=== PATIENT | male | born 1950 | race Caucasian/White ===

== ENCOUNTER 2016-10-05 07:42 | Day surgery (SDC) | payer MEDICARE ==
[2016-10-02 11:20] VITALS: BMI 32.3
[~2016-10-05 07:42] MED LIST: LACTATED RINGERS 1,000 ML IV SCH
[2016-10-05 08:05] VITALS: RESP 16
[2016-10-05 08:08] VITALS: TEMP 99.4
[2016-10-05] MEDS ORDERED: LIDOCAINE 1% 20 ML VIAL (10MG/ML) FOR IV START INTRADERMA ONE (08:11)
[2016-10-05] MEDS ORDERED: LIDOCAINE 1% INJ 10MG/ML (20 ML MDV) ONE (09:04)
[2016-10-05] MEDS ORDERED: PROPOFOL 10 MG/ML 20 ML VIAL IV ONE (09:04)
--- NOTE | 2016-10-05 09:12 | P.GSHP ---
History of Present Illness H&P Date: 10/05/16 Chief Complaint: Screening colonoscopy This is a 65-year-old male referred from Dr. Nini grey. Patient is today for screening colonoscopy. He denies any significant GI complaints. - Constitutional Constitutional: Reports as per HPI Past Medical History Past Medical History: Heart Failure, Hypertension, Myocardial Infarction ([place]) Additional Past Medical History / Comment(s): hx of gout, mi x2 Last Myocardial Infarction Date:: 2009 History of Any Multi-Drug Resistant Organisms: None Reported Past Surgical History: Appendectomy, Ear Surgery, Heart Catheterization With Stent, Joint Replacement Additional Past Surgical History / Comment(s): rt ear drum sx, arcenio hip replacements, stent x1 Past Anesthesia/Blood Transfusion Reactions: Postoperative Nausea & Vomiting ( PONV) Date of Last Stent Placement:: 1996 Smoking Status: Former smoker - Past Family History Mother Family Medical History: No Reported History Additional Family Medical History / Comment(s): of TB when pt was 2yrs old Medications and Allergies Home Medications Medication Instructions Recorded Confirmed Type Allopurinol [Zyloprim] 300 mg PO DAILY 10/02/16 10/05/16 History Aspirin [Children's Aspirin] 81 mg PO DAILY 10/02/16 10/05/16 History Enalapril [Vasotec] 5 mg PO BID 10/02/16 10/05/16 History Furosemide [Lasix] 20 mg PO QAM 10/02/16 10/05/16 History Ibuprofen [Motrin] 800 mg PO Q6H PRN 10/02/16 10/05/16 History Metoprolol Tartrate 25 mg PO BID 10/02/16 10/05/16 History PARoxetine [Paxil] 20 mg PO DAILY 10/02/16 10/05/16 History Allergies Allergy/AdvReac Type Severity Reaction Status Date / Time morphine Allergy Rash/Hives Verified 10/05/16 08:09 Surgical - Exam Vital Signs Resp 16 10/05/16 07:49 - General well developed, well nourished, no distress - Eyes PERRL - ENT normal pinna - Neck no masses - Respiratory normal expansion - Cardiovascular Rhythm: regular - Abdomen Abdomen: soft, non tender Assessment and Plan Plan: We'll perform screening colonoscopy.
--- NOTE | 2016-10-05 09:33 | P.OP ---
Date of Procedure: 10/05/16 Preoperative Diagnosis: Screening colonoscopy Postoperative Diagnosis: Diverticulosis Procedure(s) Performed: Colonoscopy Implants: Anesthesia: MAC Surgeon: Rodriguez Wilson Pathology: none sent Condition: stable Disposition: PACU Indications for Procedure: Operative Findings: Description of Procedure: The patient's placed on the endoscopy table in the lateral position. He received IV sedation. Digital rectal exam was performed which revealed no abnormalities. The flexible colonoscope was then placed patient anus passed throughout the entire colon. The ileocecal valve was visualized. The cecum, ascending, transverse colon appeared normal. In the descending and sigmoid colon is mild diverticular changes. There is no evidence of diverticulitis. The scope was then brought back the rectum and this appeared normal. Scope was withdrawn for patient.
[2016-10-05 09:53] VITALS: BP 141/82; PULSE 67
== END 2016-10-05 10:41 | disposition home or self-care (01) ==
LOC: ORWHC2ENDO 07:42
PROVIDERS: ATTEND Surgery
DX: Z12.11 Encounter for screening for malignant neoplasm of colon (principal); K57.30 Diverticulosis of large intestine without perforation or abscess without bleeding; K21.9 Gastro-esophageal reflux disease without esophagitis; I25.10 Atherosclerotic heart disease of native coronary artery without angina pectoris; I11.0 Hypertensive heart disease with heart failure; I50.9 Heart failure, unspecified; Z87.891 Personal history of nicotine dependence; I25.2 Old myocardial infarction; M10.9 Gout, unspecified; F41.9 Anxiety disorder, unspecified; F32.9 Major depressive disorder, single episode, unspecified; Z79.82 Long term (current) use of aspirin; Z79.899 Other long term (current) drug therapy; Z88.5 Allergy status to narcotic agent
CPT/HCPCS: J2001; J2704; G0121; 45378

== ENCOUNTER → 2018-07-08 | Day surgery (SDC) | payer MEDICARE ==
[2018-07-07 09:45] VITALS: BMI 35.2
[~2018-07-08] MED LIST changes: +LIDOCAINE 1% 20 ML VIAL (10MG/ML) FOR IV START INTRADERMA ONE; +LIDOCAINE 1% INJ 10MG/ML (20 ML MDV) ONE; +PROPOFOL 10 MG/ML 20 ML VIAL IV ONE
[2018-07-08 09:46] VITALS: TEMP 96.6
--- NOTE | 2018-07-08 10:30 | P.GSHP ---
History of Present Illness H&P Date: 07/08/18 Chief Complaint: GERD This is a 67-year-old male referred from Dr. Nini grey. Patient is today for EGD. He's had issues with GERD. Past Medical History Past Medical History: Heart Failure, GERD/Reflux, Hypertension, Myocardial Inf arction ([place]), Osteoarthritis ([place]) Additional Past Medical History / Comment(s): hx of gout, mi x2., [place] right ear. Last Myocardial Infarction Date:: 2009 History of Any Multi-Drug Resistant Organisms: None Reported Past Surgical History: Appendectomy, Ear Surgery, Heart Catheterization With Stent, Joint Replacement Additional Past Surgical History / Comment(s): rt ear drum sx, arcenio hip replacements, stent x1 (1996) Past Anesthesia/Blood Transfusion Reactions: Postoperative Nausea & Vomiting (PONV) Date of Last Stent Placement:: 1996 Past Psychological History: No Psychological Hx Reported Smoking Status: Former smoker Past Alcohol Use History: None Reported Additional Past Alcohol Use History / Comment(s): quit approx 1976, smoked cigars 1-2 per week., Smoked 10 years. quit drinking May 2016 Past Drug Use History: None Reported - Past Family History Mother Family Medical History: No Reported History Additional Family Medical History / Comment(s): of TB when pt was 2yrs old Medications and Allergies Home Medications Medication Instructions Recorded Confirmed Type Allopurinol [Zyloprim] 300 mg PO DAILY 10/02/16 07/08/18 History Aspirin [Children's Aspirin] 81 mg PO DAILY 10/02/16 07/08/18 History Enalapril [Vasotec] 5 mg PO BID 10/02/16 07/08/18 History Furosemide [Lasix] 20 mg PO QAM 10/02/16 07/08/18 History Metoprolol Tartrate 25 mg PO BID 10/02/16 07/08/18 History PARoxetine [Paxil] 20 mg PO DAILY 10/02/16 07/08/18 History Allergies Allergy/AdvReac Type Severity Reaction Status Date / Time morphine Allergy Rash/Hives Verified 07/08/18 09:32 Surgical - Exam Vital Signs Temp Pulse Resp BP Pulse Ox 96.6 F L 85 18 158/80 95 07/08/18 09:44 07/08/18 09:44 07/08/18 09:44 07/08/18 09:44 07/08/18 09:44 - General well developed, well nourished, no distress - Eyes PERRL - ENT normal pinna - Neck no masses - Respiratory normal expansion - Cardiovascular Rhythm: regular - Abdomen Abdomen: soft, non tender Assessment and Plan Assessment: GERD. We'll perform EGD.
--- NOTE | 2018-07-08 10:43 | P.OP ---
Date of Procedure: 07/08/18 Preoperative Diagnosis: GERD Postoperative Diagnosis: Antral gastritis No evidence of hiatal hernia Esophagitis Procedure(s) Performed: EGD Anesthesia: MAC Surgeon: Rodriguez Wilson Pathology: other (Antrum, esophagus) Condition: stable Disposition: PACU Description of Procedure: The patient's placed on the endoscopy table in the lateral position. He received IV sedation. The gastroscope placed oropharynx passed in the esophagus and into the stomach. Scope was then placed through the pylorus. The first and second portion of the duodenum appeared normal. Scope was then brought back the antrum and there was some minimal inflammation. A biopsies performed. The scope was then retroflexed remainder stomach appeared normal. There was no significant hiatal hernia. The GE junction was at 40 cm. The distal esophagus appeared mildly inflamed a biopsies performed. The proximal esophagus appeared normal. Scope was withdrawn for patient.
[2018-07-08 11:00] VITALS: BP 124/68; PULSE 69; RESP 16
== END ==
LOC: ORWHC2ENDO 09:21
PROVIDERS: ATTEND Surgery
DX: K21.0 Gastro-esophageal reflux disease with esophagitis (principal); K29.50 Unspecified chronic gastritis without bleeding; B96.81 Helicobacter pylori [H. pylori] as the cause of diseases classified elsewhere; I11.0 Hypertensive heart disease with heart failure; I25.2 Old myocardial infarction; I50.9 Heart failure, unspecified; M10.9 Gout, unspecified; M19.90 Unspecified osteoarthritis, unspecified site; Z79.82 Long term (current) use of aspirin; Z87.891 Personal history of nicotine dependence; Z88.5 Allergy status to narcotic agent; Z79.1 Long term (current) use of non-steroidal anti-inflammatories (NSAID); Z79.899 Other long term (current) drug therapy; Z95.5 Presence of coronary angioplasty implant and graft; Z96.643 Presence of artificial hip joint, bilateral
CPT/HCPCS: 88305; 88342; 43239; J2001; J2704

== ENCOUNTER 2018-09-12 09:24 | Day surgery (SDC) | payer MEDICARE ==
[2018-09-07 15:24] VITALS: BMI 35.0
[~2018-09-12 09:24] MED LIST changes: -LIDOCAINE 1% 20 ML VIAL (10MG/ML) FOR IV START INTRADERMA ONE; -LIDOCAINE 1% INJ 10MG/ML (20 ML MDV) ONE; -PROPOFOL 10 MG/ML 20 ML VIAL IV ONE
[2018-09-12] MEDS ORDERED: LIDOCAINE 1% 20 ML VIAL (10MG/ML) FOR IV START INTRADERMA ONE (10:15)
[2018-09-12 10:17] VITALS: TEMP 98.2
[2018-09-12] MEDS ORDERED: PROPOFOL 10 MG/ML 20 ML VIAL IV ONE (10:24)
--- NOTE | 2018-09-12 10:37 | P.GSHP ---
History of Present Illness H&P Date: 09/12/18 Chief Complaint: Epigastric pain, gastritis This is a 59-year-old male referred from Dr. Nini grey. Patient is today for EGD. He's had issues with the gastric pain and gastritis. Past Medical History Past Medical History: Heart Failure, GERD/Reflux, Hyperlipidemia, Hypertension, Myocardial Infarction ([place]), Osteoarthritis (OA), Thyroid Disorder Additional Past Medical History / Comment(s): hx of gout, mi x2., [place] right ear. Last Myocardial Infarction Date:: 2009 History of Any Multi-Drug Resistant Organisms: None Reported Past Surgical History: Appendectomy, Ear Surgery, Heart Catheterization With Stent, Joint Replacement Additional Past Surgical History / Comment(s): rt ear drum sx, arcenio hip repla cements, stent x1 (1996), COLONOSCOPY, EGD Past Anesthesia/Blood Transfusion Reactions: Postoperative Nausea & Vomiting (PONV) Date of Last Stent Placement:: 1996 Smoking Status: Former smoker - Past Family History Mother Family Medical History: No Reported History Additional Family Medical History / Comment(s): of TB when pt was 2yrs old Medications and Allergies Home Medications Medication Instructions Recorded Confirmed Type Allopurinol [Zyloprim] 300 mg PO DAILY 10/02/16 09/12/18 History Aspirin [Children's Aspirin] 81 mg PO DAILY 10/02/16 09/12/18 History Enalapril [Vasotec] 5 mg PO BID 10/02/16 09/12/18 History Furosemide [Lasix] 20 mg PO QAM 10/02/16 09/12/18 History Metoprolol Tartrate 25 mg PO BID 10/02/16 09/12/18 History PARoxetine [Paxil] 20 mg PO DAILY 10/02/16 09/12/18 History Allopurinol [Zyloprim] 100 mg PO DAILY 09/07/18 09/12/18 History Ascorbic Acid [Vitamin C] 500 mg PO DAILY 09/07/18 09/12/18 History Atorvastatin [Lipitor] 20 mg PO GUILLORY 09/07/18 09/12/18 History Celecoxib [CeleBREX] 200 mg PO DAILY 09/07/18 09/12/18 History Cholecalciferol (Vitamin D3) 2,000 unit PO DAILY 09/07/18 09/12/18 History [Vitamin D3] Gabapentin [Gralise] 1,200 mg PO BID 09/07/18 09/12/18 History Indomethacin [Indocin] 50 mg PO BID 09/07/18 09/12/18 History Levothyroxine Sodium [Levoxyl] 50 mcg PO DAILY 09/07/18 09/12/18 History Potassium Chloride 10 meq PO DAILY 09/07/18 09/12/18 History Sildenafil Citrate [Sildenafil] 20 mg PO DAILY 09/07/18 09/12/18 History Allergies Allergy/AdvReac Type Severity Reaction Status Date / Time morphine Allergy Rash/Hives Verified 09/12/18 09:52 Surgical - Exam Vital Signs Temp Pulse Resp BP Pulse Ox 98.2 F 65 18 160/78 96 09/12/18 10:12 09/12/18 10:12 09/12/18 10:12 09/12/18 10:12 09/12/18 10:12 - General well developed, well nourished, no distress - Eyes PERRL - ENT normal pinna - Neck no masses - Respiratory normal expansion - Cardiovascular Rhythm: regular - Abdomen Abdomen: soft, non tender Assessment and Plan Assessment: Epigastric pain. Gastritis We'll perform EGD.
--- NOTE | 2018-09-12 10:48 | P.OP ---
Date of Procedure: 09/12/18 Preoperative Diagnosis: Epigastric pain Gastritis Postoperative Diagnosis: Antral gastritis Small sliding hiatal hernia Esophagitis with web formation Procedure(s) Performed: EGD Anesthesia: MAC Surgeon: Rodriguez Wilson Pathology: other (Antrum, esophagus) Condition: stable Disposition: PACU Description of Procedure: Patient's placed on the endoscopy table in the lateral position. He received IV sedation. The gastric was placed oropharynx and passed in the esophagus and into the stomach. Scope was then placed through the pylorus. The first and second portion of the duodenum appeared normal. The scope was then brought back the antrum this was mildly inflamed. A biopsies performed. Scope was then retroflexed and the remainder of the stomach appeared normal. There was a small sliding hiatal hernia. The GE junction was at 38 cm. The distal esophagus was examined. There is evidence of mild esophagitis and an inflammatory went. This area is biopsied. Scope was then withdrawn the remainder the esophagus appeared normal. Scope was withdrawn for patient.
[2018-09-12 12:12] VITALS: BP 130/76; PULSE 63; RESP 18
== END 2018-09-12 11:19 | disposition home or self-care (01) ==
LOC: ORWHC2ENDO 09:24
PROVIDERS: ATTEND Surgery
DX: K29.50 Unspecified chronic gastritis without bleeding (principal); K21.0 Gastro-esophageal reflux disease with esophagitis; K22.8 Other specified diseases of esophagus; K44.9 Diaphragmatic hernia without obstruction or gangrene; I11.0 Hypertensive heart disease with heart failure; E78.5 Hyperlipidemia, unspecified; M10.9 Gout, unspecified; I25.2 Old myocardial infarction; M19.90 Unspecified osteoarthritis, unspecified site; E07.9 Disorder of thyroid, unspecified; F32.9 Major depressive disorder, single episode, unspecified; H91.91 Unspecified hearing loss, right ear; Z96.643 Presence of artificial hip joint, bilateral; Z95.5 Presence of coronary angioplasty implant and graft; Z87.891 Personal history of nicotine dependence; Z79.82 Long term (current) use of aspirin; Z79.899 Other long term (current) drug therapy; Z79.890 Hormone replacement therapy; Z88.5 Allergy status to narcotic agent
CPT/HCPCS: 43239; 88305; J2704